=== PATIENT | male | born 1970 | race Asian ===

== ENCOUNTER 2017-10-01 08:07 | Emergency (ER) | payer SELFPAY ==
[~2017-10-01] VITALS: Ht 172.7 cm; Wt 65.0 kg
[2017-10-01 09:16] VITALS: BP 110/69
== END 2017-10-01 09:24 | disposition home or self-care (01) ==
LOC: ER 08:19
DX: M54.5 Low back pain (principal); V43.52XA Car driver injured in collision with other type car in traffic accident, initial encounter; Y93.89 Activity, other specified; Y92.89 Other specified places as the place of occurrence of the external cause; Y99.8 Other external cause status
CPT/HCPCS: 99283